=== PATIENT | female | born 1960 | race Caucasian/White ===

== ENCOUNTER 2019-10-19 05:50 | Outpatient (CLI) | payer BC ==
[~2019-10-19] VITALS: Ht 162.6 cm; Wt 72.8 kg
[2019-10-19] MEDS ORDERED: ALPR0.5T7 PO (12:42)
[2019-10-19] MEDS ORDERED: LISD60CA PO (12:42)
[2019-10-19] MEDS ORDERED: PREG75CA PO (12:42)
[2019-10-19] MEDS ORDERED: ZOLP10TA5 PO (12:42)
== END 2019-10-19 12:45 | disposition home or self-care (01) ==
LOC: PREOP 05:50
PROVIDERS: ATTEND Otolaryngology Otolaryngology/Facial Plastic Surgery
DX: Z01.818 Encounter for other preprocedural examination (principal)

== ENCOUNTER 2019-10-23 06:42 | Day surgery (SDC) | payer BC ==
[~2019-10-23] VITALS: Ht 162.6 cm; Wt 72.8 kg
[2019-10-23] VITALS (10 sets, daily range): BP systolic 101–142; BP diastolic 63–82
[~2019-10-23 06:42] MED LIST: ALPR0.5T7 PO; LISD60CA PO; PREG75CA PO; ZOLP10TA5 PO
[2019-10-23] MEDS ORDERED: LACTATED RINGERS 1,000 ML IV PRN (06:49)
[2019-10-23] MEDS ORDERED: proPOfol 200 MG/20 ML (DIPRIVAN) VIAL IV ONE (07:30)
[2019-10-23] MEDS ORDERED: SEVOFLURANE (ULTANE) 15 ML INHAL SOLN ONE (07:30)
[2019-10-23] MEDS ORDERED: MIDAZOLAM 2 MG/2 ML (VERSED) VIAL ONE (07:30)
[2019-10-23] MEDS ORDERED: MUPIROCIN 2% OINT 22 GM (BACTROBAN) TUBE ONE (07:40)
--- NOTE | 2019-10-23 08:24 | Progress Note-Pre Operative ---
Pre-Operative Progress Note H&P Reviewed The H&P was reviewed, patient examined and no changes noted. Date Seen by Provider: Oct 23, 2019 Time Seen by Provider: 08:00 Date H&P Reviewed: Oct 23, 2019 Time H&P Reviewed: 08:00 Pre-Operative Diagnosis: ROSALIND Hopper MD Oct 23, 2019 08:24
--- NOTE | 2019-10-23 08:24 | Progress Note-Post Operative ---
Post-Operative Progess Note Surgeon (s)/Fixed Route Bus Operator (s) Surgeon ROSALIND CARMONA MD Fixed Route Bus Operator n/a Pre-Operative Diagnosis Bilat ARNOL Post-Operative Diagnosis same Post-Op Procedure Note Date of Procedure: Oct 23, 2019 Name of Procedure Performed: BMT Description & Findings Description and Findings: n/a Anesthesia Type mask Estimated Blood Loss minimal Packing none. Specimen(s) collected/removed none ROSALIND CARMONA MD Oct 23, 2019 08:24
[2019-10-23] MEDS ORDERED: APAP 325 MG/10.15 ML LIQ (TYLENOL) UDC PO PRN (08:30)
[2019-10-23] MEDS ORDERED: morphine INJ 10 MG/ML 1ML (SYR OR VIAL) IVP ONE (08:30)
[2019-10-23] MEDS ORDERED: ONDANSETRON 4 MG/2 ML (SDV) Z0FRAN IVP PRN (08:30)
[2019-10-23] MEDS ORDERED: MEPERIDINE (DEMEROL) INJ 50 MG/ML IVP ONE (08:30)
[2019-10-23] MEDS ORDERED: OFLO5DRO33 EACH EAR (09:06)
--- NOTE | 2019-10-23 14:34 | Anesthesia-General Post-Op ---
General Patient Condition Mental Status/LOC: Same as Preop Cardiovascular: Satisfactory Nausea/Vomiting: Absent Respiratory: Satisfactory Pain: Controlled Complications: Absent Post Op Complications Complications None Follow Up Care/Instructions Patient Instructions None needed. Anesthesia/Patient Condition Patient Condition Patient was seen this morning after the procedure and she was doing well, no complaints, stable vital signs, no apparent adverse anesthesia problems. TOMMY GARZA DO Oct 23, 2019 14:34
== END 2019-10-23 10:15 | disposition home or self-care (01) ==
LOC: SDC 06:42
PROVIDERS: ATTEND Otolaryngology Otolaryngology/Facial Plastic Surgery
DX: H65.23 Chronic serous otitis media, bilateral (principal); H69.93 Unspecified Eustachian tube disorder, bilateral; I82.409 Acute embolism and thrombosis of unspecified deep veins of unspecified lower extremity; F41.9 Anxiety disorder, unspecified; Z79.899 Other long term (current) drug therapy; Z98.51 Tubal ligation status; Z90.710 Acquired absence of both cervix and uterus; Z90.89 Acquired absence of other organs; Z91.048 Other nonmedicinal substance allergy status; Z88.8 Allergy status to other drugs, medicaments and biological substances; Z88.0 Allergy status to penicillin
CPT/HCPCS: 87081